=== PATIENT | female | born 2000 | race Caucasian/White ===

== ENCOUNTER 2023-12-09 15:04 | Emergency (ER) | payer OTHER, SELFPAY ==
[2023-12-09 15:06] VITALS: BP 139/93
[2023-12-09 15:31] LABS: % Basophils 0.5 % (0-2); % Eosinophils 1.1 % (0-6); % Immature Granulocytes 1.4 % (0-0.5); % Lymphocytes 28.7 % (20.5-51.1); % Monocytes 6.7 % (1.7-9.3); % Neutrophils 61.6 % (42.2-75.2); Absolute Basophils 0.1 10^3/uL (0-0.2); Absolute Eosinophils 0.1 10^3/uL (0-0.7); Absolute Immature Granulocytes 0.1 10^3/uL (0-0.05); Absolute Lymphocytes 2.7 10^3/uL (1.2-3.4); Absolute Monocytes 0.6 10^3/uL (0.1-0.6); Absolute Neutrophils 5.7 10^3/uL (1.4-6.5); Hematocrit 39.3 % (37.0-47.0); Hemoglobin 12.5 g/dL (12.0-16.0); Mean Corp Hgb Conc. 31.8 g/dL (33.0-37.0); Mean Corpuscular Hgb 28.3 pg (27.0-31.0); Mean Corpuscular Volume 89.1 fL (81.0-99.0); Mean Platelet Volume 10.2 fL (7.4-10.4); Nucleated Red Blood Cells % 0 %; Platelet Count 442 10^3/uL (130-400); Red Blood Cell Count 4.41 10^6/uL (4.20-5.40); Red Cell Dist. Width 14.2 % (11.5-14.5); White Blood Cell Count 9.3 10^3/uL (4.8-10.8)
[2023-12-09 15:32] LABS: Urine Albumin Trace (Neg - Trace); Urine Bilirubin 1+ (Negative); Urine Character Clear (Clear); Urine Color Yellow; Urine Glucose Negative (Negative); Urine Ketone Trace (Negative); Urine Leukocyte Trace (Negative); Urine Nitrite Negative (Negative); Urine Occult Blood 1+ (Negative); Urine Urobilinogen 2+ (Neg - 1+)
[2023-12-09 15:39] LABS: Urine Red Blood Cell 0-2 /HPF (0-2); Urine White Cell 0-2 /HPF (0-5)
[2023-12-09 15:40] LABS: Urine Bacteria Moderate (Negative)
[2023-12-09 16:15] LABS: ALT (SGPT) 16 U/L (0-35); AST (SGOT) 24 U/L (14-36); Albumin 4.5 g/dl (3.5-5.0); Alkaline Phosphatase 97 U/L (38-126); Blood Urea Nitrogen 12 mg/dl (7-17); Calcium 9.9 mg/dl (8.4-10.2); Carbon Dioxide 26 mmol/L (22-30); Chloride 106 mmol/L (98-107); Glucose 112 mg/dl (70-99); Potassium 4.3 mmol/L (3.5-5.1); Sodium 141 mmol/L (135-145); Total Bilirubin 0.5 mg/dl (0.2-1.3); Total Protein 8.4 g/dl (6.3-8.2); eGFR > 60.00
--- NOTE | 2023-12-09 18:41 | ED.GENMED ---
History of Present Illness
General
Chief Complaint: Vaginal Bleeding
Source: patient
Exam Limitations: none
Time Seen by Provider: 12/09/23 17:01
Nursing documentation reviewed up to this point in time: agreed with
History of Present Illness
History of Present Illness:
Patient to ED with complaint of pelvic pain, abnormal vaginal bleeding. States she got her period last week as scheduled. Started bleeding again 2 days after bleeding stopped (bleeding started yesterday). No clots. Using 2 pads/day. IUD placed
2 years ago. No issues until now.Denies fever/chills, n/v/d. Brought self to ED for eval.
Past History
Past History
ED Past Medical History: None
ED Past Surgical History: None
Social History
Tobacco: Non-smoker
Alcohol: Occasional
Drug: None
Review of Systems
Review of Systems
Allergies reviewed?: Yes
All Other Systems: ROS reviewed and negative except as documented in HPI and ROS
Constitutional: Reports no symptoms
EENT: Reports no symptoms
Respiratory: Reports no symptoms
Cardiac: Reports no symptoms
ABD/GI: Reports no symptoms
: Reports bleeding
Musculoskeletal: Reports no symptoms
Skin: Reports no symptoms
Neurological: Reports no symptoms
Psychiatric: Reports no symptoms
Phy Exam
General Physical Exam
General Presentation: well appearing and no apparent distress
General age: appears stated age
General Skin: warm and dry
General Habitus: normal
General Mental: alert
Gastrointestinal Exam
Gastrointestinal Exam: normal bowel sounds, non tender, soft and no organomegaly
Genitourinary Exam Female
Exam Female: other (deferred for pelvic US)
Musculoskeletal Exam
Musculoskeletal Exam: full ROM and neuro vasc intact
Skin Exam
Skin Exam: normal color, warm/dry and no rash
Psychiatric Exam
Psychiatric Exam: normal mood/affect
Course
Orders/Labs/Results
Orders:
Orders
12/09/23 15:25
CMP [Comprehensive Metabolic Panel] Urgent
Complete Blood Count/With Diff Urgent
Urinalysis Reflex To Culture Urgent
Date Specimen was Collected: 12/09/23
Time Specimen was Collected: 15:12
Urine Microscopic Reflex Cult Urgent
Chlamydia/GC by PCR Urgent
SHANIQUA Source: U
Specimen Description:
Source:: URINE
Date Specimen was Collected: 12/09/23
Time Specimen was Collected: 15:12
Urine Culture Urgent
SHANIQUA Source: U
Specimen Description:
Date Specimen was Collected: 12/09/23
Time Specimen was Collected: 15:12
12/09/23 17:10
Add On- LAB Urgent
Tests Added?: chlamydia/GC pcr, urine
US Pelvis W Transvag Combined Urgent
Reason For Exam: pelvic pain, abnormal bleeding
Abnormal Lab Results
12/09/23
15:25
MCHC 31.8 L g/dL
(33.0-37.0)
Plt Count 442 H 10^3/uL
(130-400)
Abs Immat Gran (auto) 0.1 H 10^3/uL
(0-0.05)
Immature Gran % 1.4 H %
(0-0.5)
Glucose 112 H mg/dl
(70-99)
Total Protein 8.4 H g/dl
(6.3-8.2)
Urine Ketones Trace A
(Negative)
Ur Occult Blood Reflex 1+ A
(Negative)
Urine Bilirubin 1+ A
(Negative)
Urine Urobilinogen 2+ A
(Neg - 1+)
Leukocyte Esterase Rfl Trace A
(Negative)
Urine Bacteria (Reflex) Moderate A
(Negative)
12/09/23 15:25
12/09/23 15:25
Vital Signs
Initial and Last Documented VS:
Initial Vital Signs
Temp Pulse Resp BP Pulse Ox
98.9 F 99 18 139/93 97
12/09/23 15:06 12/09/23 15:06 12/09/23 15:06 12/09/23 15:06 12/09/23 15:06
Last Documented Vital Signs
Temp Pulse Resp BP Pulse Ox
98.9 F 99 18 139/93 97
12/09/23 15:06 12/09/23 15:06 12/09/23 15:06 12/09/23 15:06 12/09/23 15:06
*Radiology
Radiology exam reviewed: radiology read reviewed
*Pulse Oximetry
Patient hypoxic: no
*Critical Care Note
Total Time (30-74mins, 75-104mins- exclusive of procedures): Not Applicable
Update Note
Update Note:
US resultss reviewed iwth patient. No concerning findings on exam or US. Will discharge home. SHe will follow up with queen producer in office.
ED Attending Note
-
Portions of this chart may have been created with voice recognition software.� Occasional wrong word or��sound alike� substitutions may have occurred due to the inherent limitations of voice recognition software.
Discharge Plan
Departure
Patient Disposition: Home (Routine Discharge)
Date of Disposition: 12/09/23
Time of Disposition: 18:46
Patient with high blood pressure during this ER visit?: No
Covid-19: Not Applicable
Discharge Problem:
Vaginal bleeding
Instructions: Heavy Periods (DC)
Referrals:
Elba Fontenot MD [Active] - Next open appointment
UNKNOWN - PT DOES,NOT KNOW [Family Provider] -
Interventions
Interventions:
*Risk Screen - Suicide Last Done: 12/09/23 17:15
*General Assessment Last Done: 12/09/23 17:15
*Neglect/Abuse Screening Last Done: 12/09/23 17:15
ED- Fall Risk Assessment Last Done: 12/09/23 18:51
*ED COVID-19 Vaccine History Last Done: 12/09/23 17:15
*Nursing Disposition Last Done: 12/09/23 18:51
ED-Female Genitourinary Assessment Last Done: 12/09/23 17:15
Discharge Date and Time
Discharge Date/Time: 12/09/23 19:00
Print Language: UPPER SORBIAN
== END 2023-12-09 19:00 | disposition home or self-care (01) ==
LOC: EMR 15:04
PROVIDERS: EMERGENCY PHYSICIAN Emergency Medicine
DX: N93.9 Abnormal uterine and vaginal bleeding, unspecified (principal); R10.2 Pelvic and perineal pain; F32.A Depression, unspecified; Z97.5 Presence of (intrauterine) contraceptive device
CPT/HCPCS: 99284; 76830; 76856; 80053; 81003; 81015; 85025; 87086; 87491; 87591